=== PATIENT | female | born 2000 | race Caucasian/White ===

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

== ENCOUNTER 2020-09-20 13:58 | Emergency (ER) | payer OTHER ==
[~2020-09-20] VITALS: Ht 157.5 cm; Wt 63.5 kg
[2020-09-20 14:29] VITALS: Ht 157.5 cm; Wt 63.5 kg
[2020-09-20 14:39] LABS: BASOPHIL % 0.6 % (0-2); PLATELET COUNT 280 x10^3mcL (130-400); RED CELL DISTRIBUTION WIDTH 13.5 % (11.5-14.5)
[2020-09-20 15:09] LABS: ALBUMIN 4.1 g/dL (3.4-5.0); ALKALINE PHOSPHATASE 49 U/L (46-116); ALT/SGPT 20 U/L (14-59); AST/SGOT 31 U/L (15-37); BILIRUBIN TOTAL 0.73 mg/dL (0.20-1.00); CALCIUM 8.7 mg/dL (8.5-10.1); CHLORIDE SERUM 101 mmol/L (98-107); CREATININE SERUM 0.8 mg/dL (0.6-1.0); GFR1 > 60 mL/min; GLUCOSE SERUM 100 mg/dL (74-106); SODIUM SERUM 138 mmol/L (136-145); TOTAL PROTEIN, SERUM 7.9 g/dL (6.4-8.2)
[2020-09-20 15:12] LABS: POTASSIUM SERUM 2.9 mmol/L (3.5-5.1)
[2020-09-21 04:22] LABS: UA SPECIFIC GRAVITY >=1.030 (1.005-1.035); microscopic required? YES; urine erythrocyte 3+ (NEGATIVE)
[2020-09-21 04:27] LABS: AMPHETAMINE QUAL UR NONE DETECTED (See below)
--- NOTE | 2020-09-21 15:50 | NUR ---
Intake information has also been faxed to Klaudia Inman/ Reji Griffith/ [facility]....Will keep facility updated with any information
[2020-09-21 16:10] VITALS: BP 118/74
--- NOTE | 2020-09-21 16:37 | NUR ---
Please disregard prior note
== END 2020-09-21 16:10 | disposition short-term general hospital (02) ==
LOC: ED 13:58
PROVIDERS: Specialist
DX: F31.9 Bipolar disorder, unspecified (principal); F12.90 Cannabis use, unspecified, uncomplicated; Z20.828 Contact with and (suspected) exposure to other viral communicable diseases
CPT/HCPCS: G0480; J2060; J3480; J3486; U0003-CS

== ENCOUNTER 2020-10-01 17:00 | Emergency (ER) | payer OTHER ==
[~2020-10-01] VITALS: Ht 154.9 cm; Wt 60.8 kg
[2020-10-01 17:25] VITALS: Ht 154.9 cm; Wt 60.8 kg
[2020-10-01 18:58] VITALS: BP 110/73
== END 2020-10-01 18:58 | disposition home or self-care (01) ==
LOC: ED 17:00
DX: F41.9 Anxiety disorder, unspecified (principal)